=== PATIENT | male | born 1965 | race Two or more races ===

== ENCOUNTER 2020-01-04 15:08 | Outpatient (REF) | payer OTHER, SELFPAY | END 2020-01-04 15:09 | disposition home or self-care (01) | LOC: HO.LAB 15:08 | PROVIDERS: Visit Provider Internal Medicine | DX: Z20.828 Contact with and (suspected) exposure to other viral communicable diseases (principal) | CPT/HCPCS: C9803; U0003 ==

== ENCOUNTER → 2020-10-22 09:17 | Outpatient (BNVA) | payer MEDICAID, SELFPAY | PROVIDERS: PCP Internal Medicine; Referring Provider Internal Medicine; Visit Provider Nurse Practitioner Family | DX: Z12.11 Encounter for screening for malignant neoplasm of colon (principal) | CPT/HCPCS: 99202 ==

== ENCOUNTER 2020-12-03 07:44 | Outpatient (REF) | payer OTHER, SELFPAY ==
[2020-12-03 08:10] LABS: MANUAL DIFF FLAG NO
[2020-12-03 08:55] LABS: Basophils Percent Auto 0.3 % (0-2); Eosinophils Absolute Auto 0.3 X10*3/uL (0.0-0.4); Eosinophils Percent Auto 3.7 % (0-4); Hemoglobin 14.8 g/dl (14.0-18.0); Imm Gran Abs Auto 0.02 X10*3/uL (0.00-0.03); Imm Gran Pct Auto 0.3 % (0.0-0.4); Lymphocytes Absolute Auto 1.9 X10*3/uL (1.2-4.9); Lymphocytes Percent Auto 27.2 % (20-40); Mean Corpuscular HGB Conc 33.6 g/dl (31.0-36.0); Mean Corpuscular Hemoglobin 29.2 pg (27.0-33.0); Mean Platelet Volume 10.6 fL (9.4-12.4); Monocytes Absolute Auto 0.6 X10*3/uL (0.1-1.2); Monocytes Percent Auto 8.6 % (2-11); Neutrophils Absolute Auto 4.3 X10*3/uL (2.0-8.3); Neutrophils Percent Auto 59.9 % (45-73); Platelet Count 186 X10*3/uL (160-400); Red Blood Count 5.06 X10*6/uL (4.60-5.80); Red Cell Distribution Width 12.5 % (11.0-16.0); White Blood Count 7.1 X10*3/uL (4.8-10.8)
[2020-12-03 09:11] LABS: Alanine Aminotransferase 19 U/L (0-40); Albumin Level 4.3 g/dL (3.5-5.0); Alkaline Phosphatase 69 U/L (39-117); Anion Gap 12 (12-20); Aspartate Amino Transferase 23 U/L (5-37); Bilirubin Total 0.4 mg/dL (0.0-1.0); Blood Urea Nitrogen 12 mg/dL (9-16); Calcium 9.5 mg/dL (8.4-10.2); Carbon Dioxide 26 mmol/L (22-29); Chloride 103 mmol/L (96-108); Cholesterol 242 mg/dL; Estimated Glomerular Filt Rate > 60; Glucose Fasting 128 mg/dL (60-99); HDL Cholesterol 47 mg/dL; LDL Cholesterol Calculated 174 mg/dl; Potassium 4.5 mmol/L (3.3-5.1); Sodium 136 mmol/L (135-145); Total Protein 7.6 g/dL (6.5-8.0); Triglycerides 107 mg/dL
== END 2020-12-03 07:45 | disposition home or self-care (01) ==
LOC: HO.LAB 07:44
PROVIDERS: PCP Internal Medicine; Visit Provider Internal Medicine
DX: E66.3 Overweight (principal)
CPT/HCPCS: 36415; 80053; 80061; 85025

== ENCOUNTER 2020-12-05 06:25 | Day surgery (SDC) | payer OTHER, SELFPAY ==
[2020-11-28 13:18] VITALS: BMI 27.2
--- NOTE | 2020-12-04 09:05 | HO.ANESPROP2 ---
Documented by User: Marina Lucero NP 12/04/20 09:06 HPI - Anesthesia Eval Consult details Narrative: 55yo M for Colonoscopy PMFSH Active Problems Active Problems: All Active Problems (Updated 12/04/20 @ 08:24 by Diana Macias) Headache (Acute) Overweight (Acute) Past Medical History Medical History Headache Overweight Family History Family History Father Diabetes Hypertension Surgical History Surgical History History of hernia surgery Social History Social History Housing: Apartment Alcohol intake: current Alcohol intake frequency: 0-2 drinks per day Alcohol type: beer Patient Tobacco Use Status: Never used Tobacco e-Cigarette/Vaping Use: Never Used Second Hand Smoke Exposure: No Use of substances other than those prescribed or required for medical reasons: No Are you DNR?: No Advance Directives: No Advance Directives Information Provided: Yes service: No Current occupational status: employed Current occupational exposures/hazards: No Meds Allergies Allergy/AdvReac Type Severity Reaction Status Date / Time No Known Allergies Allergy Verified 12/05/20 06:34 Home Medications Medication Instructions Recorded Confirmed Last Taken Type xsdfioi-epmsmfuoqeptl-vhdqervv 250 2 tab PO Q6H PRN 08/27/20 08/27/20 Unknown History mg-250 mg-65 mg tablet (Excedrin Extra Strength) Exam Exam Date and Time: December 04, 2020 0905 Height,Weight and Vital Signs: Height 5 ft 10 in Weight 86.183 kg Assessment and Plan Assessment Anesthesia Assessment: Chart Reviewed Documented by User: Rima Davison MD 12/05/20 07:37 PMFSH Past Medical History Medical History Headache Overweight Family History Family History Father Diabetes Hypertension Surgical History Surgical History History of hernia surgery History of Problems with Anesthesia: No Social History Social History Housing: Apartment Alcohol intake: current Alcohol intake frequency: 0-2 drinks per day Alcohol type: beer Patient Tobacco Use Status: Never used Tobacco e-Cigarette/Vaping Use: Never Used Second Hand Smoke Exposure: No Use of substances other than those prescribed or required for medical reasons: No Are you DNR?: No Advance Directives: No Advance Directives Information Provided: Yes service: No Current occupational status: employed Current occupational exposures/hazards: No Meds Allergies Allergy/AdvReac Type Severity Reaction Status Date / Time No Known Allergies Allergy Verified 12/05/20 06:34 Home Medications Medication Instructions Recorded Confirmed Last Taken Type abpylwf-nsrbommaqhzur-kvrxqrcw 250 2 tab PO Q6H PRN 08/27/20 08/27/20 Unknown History mg-250 mg-65 mg tablet (Excedrin Extra Strength) Exam Airway Mallampati Class: II TM Dist: >3cm Neck ROM: Full Loose/Missing/Broken Teeth: No Heart: RRR Lungs: CTA Assessment and Plan Assessment Anesthesia Assessment: Anesthesia Plan Discussed Final Anesthetic Review History of Problems with Anesthesia: No NPO: Yes ASA Class: II Final Preanesthetic Review: Meds/Allgs Chart Reviewed, Consent Obtained/Reviewed and Anes Risks/Benef Reviewed Patient Risk: Low Procedure Risk: Low Anesthetic Plan Anesthetic Plan: MAC: Disposition: Standard PACU
[2020-12-05 06:35] VITALS: BMI 25.8
[2020-12-05 06:42] VITALS: BP 169/94; PULSE 79; RESP 16; TEMP 36.2; O2SAT 99
[2020-12-05] MEDS: Lactated Ringers 1,000 ML 100 ML IVCONT (06:52)
--- NOTE | 2020-12-05 07:24 | P.HPSUR_ITS ---
Pre-Procedural Eval Section A Date of Service: 12/05/20 The patient is an INPATIENT: No The History & Physical has been completed within 30 days and I have reviewed it.: No Section B Chief Complaint: screening Details of Present Illness: Colon cancer Screening Relevant Family History (Specify if Yes): No Relevant Social History: None Present Medications: see Short Stay Collaborative assessment Medical History: Significant History (Headache Overweight) History of Previous Operations: Relevant previous surgery/procedure and date(s) (Status post hernia surgery) Allergies: Allergies Allergy/AdvReac Type Severity Reaction Status Date / Time No Known Allergies Allergy Verified 12/05/20 06:34 Review of Systems Sugical H&P ROS: Negative: Constitution, Cardiovascular, Respiratory and Ga strointestinal Exam Surgical H&P Exam: Normal: Heart, Normal: Lungs, Normal: Extremities and Normal: Abdomen Plan Diagnosis/Plan: Unchanged I have reviewed the history and physical and performed a pertinent physical examination on my patient. No changes have occurred unless specified.
--- NOTE | 2020-12-05 07:25 | P.OP_ITS ---
Operative Note Operative Note Date of Service: 12/05/20 Narrative: Pre-op diagnosis:?Colon cancer screening Post-op diagnosis:?other (Diverticulosis) Procedure:? COLONOSCOPY TILL CECUM Consent: Indications for the procedure and potential complications of bleeding, perforation, reaction to medications and missed diagnosis were discussed with the patient and informed consent was obtained. Instrument: Olympus PCF H 190 L variable stiffness pediatric colonoscope Monitoring: Vital signs and clinical assessment, intermittent blood pressure monitoring, continuous EKG monitoring, Pulse oximetry and Carbon Dioxide monitoring were done throughout the procedure. Colon withdrawl time was 14 minutes. Procedure: The patient was placed in the left lateral decubitis position and pre-procedure medications were administered. After a digital rectal examination of the ano-rectum, the video colonoscope was inserted into the rectum and advanced through the colon to the cecum. The colonoscope was slowly withdrawn in a retrograde panoramic fashion and the colon mucosa was carefully examined including a retroflexed view of the rectum. Findings and interventions are described below. Procedure Difficulty: [Without difficulty] [LLQ pressure applied to intubate the transverse colon/cecum] Findings: Terminal Ileum: Not evaluated Cecum:? Normal Ascending Colon:? Normal Transverse Colon:? Normal Descending Colon:? Normal Sigmoid Colon:? Moderate diverticulosis Rectum:? Normal Ano-rectum:? Normal Colon preparation:? Good after some irrigation Impression and Post Procedure Diagnosis: Colonoscopy Findings: No polyps were detected Moderate diverticulosis seen in the sigmoid colon Plan: Repeat Colonoscopy in 10 years. Above findings were reviewed with the patient and diverticulosis handout was given in the discharge area Surgeon:?Niki Adam MD Anesthesia:?MAC (Lurdes Ram CRNA) Was an Blending Machine Operator used for this Procedure?:?Yes Blending Machine Operator:?Fe Huddleston Estimated blood loss (mL):?0 Pathology:?none sent Condition:?stable Disposition:?PACU
[2020-12-05] MEDS: Sodium Phosphate,Mono-Dibasic 133 ML ENEMA PR (07:50)
--- NOTE | 2020-12-05 08:30 | PC.NURSE ---
Patient being prepped in [facility] for Colonoscopy with Dr. Adam. Guest Service Agent offered, however patient declined. During intake, patient stated that he drank clear liquids only yesterday, finished his bowel prep completely, and that his output was clear. Later when Dr. Davison from anesthesia at bedside, patient again repeated all of this. Later when Dr. Adam at bedside, patient stated that he drank 8 cups of prep and ate a sandwich yesterday at 11am. Unclear as to what exact prep patient received from office. Patient states he is pretty sure he followed the instructions . Dr. Adam ordered one Enema. Enema administered, tolerated well. Output visualized by this RN, Clear output. Dr. Adam aware. Okay to proceed with procedure.
[2020-12-05 09:13] VITALS: BP 120/79; PULSE 92; RESP 18; TEMP 36.7; O2SAT 99
[2020-12-05 09:28] VITALS: BP 121/76; PULSE 75; RESP 18; TEMP 36.7; O2SAT 99
== END 2020-12-05 09:59 | disposition home or self-care (01) ==
PROVIDERS: PCP Internal Medicine; Visit Provider Internal Medicine Gastroenterology
PROC: 0DJD8ZZ Inspection of Lower Intestinal Tract, Via Natural or Artificial Opening Endoscopic (ICD-10-PCS; CPT 45378; principal; 2020-12-05 07:30)
DX: Z12.11 Encounter for screening for malignant neoplasm of colon (principal); K57.30 Diverticulosis of large intestine without perforation or abscess without bleeding; R51.9 Headache, unspecified; E66.3 Overweight; Z68.27 Body mass index [BMI] 27.0-27.9, adult
CPT/HCPCS: 45378

== ENCOUNTER → 2020-12-17 08:49 | Outpatient (BNVA) | payer OTHER, SELFPAY | PROVIDERS: PCP Internal Medicine; Visit Provider Nurse Practitioner Family | DX: K57.90 Diverticulosis of intestine, part unspecified, without perforation or abscess without bleeding (principal); Z98.890 Other specified postprocedural states | CPT/HCPCS: 99212 ==

== ENCOUNTER 2021-03-27 08:12 | Outpatient (REF) | payer OTHER, SELFPAY ==
[2021-03-27 08:32] LABS: MANUAL DIFF FLAG NO
[2021-03-27 09:31] LABS: Basophils Percent Auto 0.3 % (0-2); Eosinophils Absolute Auto 0.2 X10*3/uL (0.0-0.4); Eosinophils Percent Auto 2.4 % (0-4); Hemoglobin 14.1 g/dl (14.0-18.0); Imm Gran Abs Auto 0.01 X10*3/uL (0.00-0.03); Imm Gran Pct Auto 0.1 % (0.0-0.4); Lymphocytes Absolute Auto 1.9 X10*3/uL (1.2-4.9); Lymphocytes Percent Auto 27.8 % (20-40); Mean Corpuscular HGB Conc 32.8 g/dl (31.0-36.0); Mean Corpuscular Hemoglobin 28.5 pg (27.0-33.0); Mean Corpuscular Volume 86.9 fL (80.0-98.0); Mean Platelet Volume 10.6 fL (9.4-12.4); Monocytes Absolute Auto 0.6 X10*3/uL (0.1-1.2); Monocytes Percent Auto 8.7 % (2-11); Neutrophils Absolute Auto 4.2 x10*3/uL (2.0-8.3); Neutrophils Percent Auto 60.7 % (45-73); Platelet Count 189 X10*3/uL (160-400); Red Blood Count 4.95 X10*6/uL (4.60-5.80); Red Cell Distribution Width 12.5 % (11.0-16.0)
[2021-03-27 10:05] LABS: Alanine Aminotransferase 23 U/L (0-40); Albumin Level 4.2 g/dL (3.5-5.0); Alkaline Phosphatase 67 U/L (39-117); Anion Gap 11 (12-20); Aspartate Amino Transferase 24 U/L (5-37); Bilirubin Total 0.5 mg/dL (0.0-1.0); Blood Urea Nitrogen 16 mg/dL (9-16); Calcium 9.3 mg/dL (8.4-10.2); Carbon Dioxide 26 mmol/L (22-29); Chloride 105 mmol/L (96-108); Cholesterol 226 mg/dL; Estimated Glomerular Filt Rate > 60; Glucose Fasting 116 mg/dL (60-99); HDL Cholesterol 56 mg/dL; LDL Cholesterol Calculated 158 mg/dl; Potassium 4.5 mmol/L (3.3-5.1); Sodium 137 mmol/L (135-145); Total Protein 7.3 g/dL (6.5-8.0); Triglycerides 62 mg/dL
== END 2021-03-27 08:13 | disposition home or self-care (01) ==
LOC: HO.LAB 08:12
PROVIDERS: PCP Internal Medicine; Visit Provider Internal Medicine
DX: E66.3 Overweight (principal); E78.5 Hyperlipidemia, unspecified
CPT/HCPCS: 36415; 80053; 80061; 85025

== ENCOUNTER 2021-08-12 06:11 | Outpatient (REF) | payer OTHER, SELFPAY ==
[2021-08-12 07:54] LABS: Alanine Aminotransferase 21 U/L (0-40); Albumin Level 4.3 g/dL (3.5-5.0); Alkaline Phosphatase 66 U/L (39-117); Anion Gap 12 (12-20); Aspartate Amino Transferase 24 U/L (5-37); Bilirubin Total 0.3 mg/dL (0.0-1.0); Blood Urea Nitrogen 13 mg/dL (9-16); Calcium 9.1 mg/dL (8.4-10.2); Carbon Dioxide 25 mmol/L (22-29); Chloride 106 mmol/L (96-108); Cholesterol 215 mg/dL; Estimated Glomerular Filt Rate > 60; Glucose Fasting 107 mg/dL (60-99); HDL Cholesterol 52 mg/dL; LDL Cholesterol Calculated 129 mg/dl; Potassium 4.4 mmol/L (3.3-5.1); Sodium 139 mmol/L (135-145); Total Protein 7.4 g/dL (6.5-8.0); Triglycerides 173 mg/dL
== END 2021-08-12 06:12 | disposition home or self-care (01) ==
LOC: HO.LAB 06:11
PROVIDERS: PCP Internal Medicine; Visit Provider Internal Medicine
DX: R73.02 Impaired glucose tolerance (oral) (principal); E78.5 Hyperlipidemia, unspecified
CPT/HCPCS: 36415; 80053; 80061

== ENCOUNTER 2021-12-30 06:43 | Outpatient (REF) | payer OTHER, SELFPAY ==
[2021-12-30 07:50] LABS: Alanine Aminotransferase 25 U/L (0-40); Albumin Level 4.3 g/dL (3.5-5.0); Alkaline Phosphatase 69 U/L (39-117); Anion Gap 12 (12-20); Aspartate Amino Transferase 26 U/L (5-37); Bilirubin Total 0.5 mg/dL (0.0-1.0); Blood Urea Nitrogen 11 mg/dL (9-16); Calcium 9.4 mg/dL (8.4-10.2); Carbon Dioxide 29 mmol/L (22-29); Chloride 103 mmol/L (96-108); Cholesterol 207 mg/dL; Estimated Glomerular Filt Rate > 60; Glucose Fasting 134 mg/dL (60-99); HDL Cholesterol 60 mg/dL; LDL Cholesterol Calculated 133 mg/dl; Potassium 4.3 mmol/L (3.3-5.1); Sodium 140 mmol/L (135-145); Total Protein 7.3 g/dL (6.5-8.0); Triglycerides 71 mg/dL
== END 2021-12-30 06:44 | disposition home or self-care (01) ==
LOC: HO.LAB 06:43
PROVIDERS: PCP Internal Medicine; Visit Provider Internal Medicine
DX: Z13.89 Encounter for screening for other disorder (principal)
CPT/HCPCS: 36415; 80053; 80061

== ENCOUNTER 2022-06-30 05:59 | Outpatient (REF) | payer OTHER, SELFPAY ==
[2022-06-30 08:23] LABS: Alanine Aminotransferase 37 U/L (0-40); Albumin Level 4.1 g/dL (3.5-5.0); Alkaline Phosphatase 67 U/L (39-117); Anion Gap 13 (12-20); Aspartate Amino Transferase 34 U/L (5-37); Bilirubin Total 0.5 mg/dL (0.0-1.0); Blood Urea Nitrogen 19 mg/dL (9-16); Calcium 9.3 mg/dL (8.4-10.2); Carbon Dioxide 26 mmol/L (22-29); Chloride 106 mmol/L (96-108); Cholesterol 220 mg/dL; Estimated Glomerular Filt Rate > 60; Glucose Fasting 114 mg/dL (60-99); HDL Cholesterol 52 mg/dL; LDL Cholesterol Calculated 155 mg/dl; Potassium 4.3 mmol/L (3.3-5.1); Sodium 141 mmol/L (135-145); Total Protein 7.2 g/dL (6.5-8.0); Triglycerides 67 mg/dL
== END 2022-06-30 06:00 | disposition home or self-care (01) ==
LOC: HO.LAB 05:59
PROVIDERS: PCP Internal Medicine; Visit Provider Internal Medicine
DX: Z00.00 Encounter for general adult medical examination without abnormal findings (principal); E78.5 Hyperlipidemia, unspecified
CPT/HCPCS: 36415; 80053; 80061

== ENCOUNTER 2023-01-14 06:35 | Outpatient (REF) | payer OTHER, SELFPAY ==
[2023-01-14 08:32] LABS: Alanine Aminotransferase 26 U/L (0-40); Albumin Level 4.1 g/dL (3.5-5.0); Alkaline Phosphatase 68 U/L (39-117); Anion Gap 12 (12-20); Aspartate Amino Transferase 27 U/L (5-37); Bilirubin Total 0.5 mg/dL (0.0-1.0); Blood Urea Nitrogen 13 mg/dL (9-16); Calcium 9.4 mg/dL (8.4-10.2); Carbon Dioxide 26 mmol/L (22-29); Chloride 107 mmol/L (96-108); Cholesterol 175 mg/dL (<200); Estimated Glomerular Filt Rate > 60; Glucose Fasting 126 mg/dL (60-99); HDL Cholesterol 54 mg/dL (>40); LDL Cholesterol Calculated 109 mg/dL (<100); Sodium 141 mmol/L (135-145); Total Protein 7.4 g/dL (6.5-8.0); Triglycerides 61 mg/dL (<150)
== END 2023-01-14 06:36 | disposition home or self-care (01) ==
LOC: HO.LAB 06:35
PROVIDERS: PCP Internal Medicine; Visit Provider Internal Medicine
DX: E78.5 Hyperlipidemia, unspecified (principal)
CPT/HCPCS: 36415; 80053; 80061

== ENCOUNTER 2023-01-19 12:43 | Outpatient (AMB) | payer OTHER, SELFPAY ==
--- NOTE | 2023-01-19 12:50 | MHC.PC.OV ---
Vital Signs 01/19/23 12:51 01/19/23 13:10 Height 5 ft 10 in Weight 185 lb BMI 26.5 BP 150/80 H 150/80 H Blood Pressure Location Lt brachial Lt brachial Position Sitting Sitting Intake Visit Reasons: Annual Exam Intake Note: Patient here for a physical exam Meat Wrapper Required: No Accompanied by: Self / Same As Patient Allergies No Known Allergies Allergy (Verified 01/19/23 13:11) Medication List - Last Reconciled 01/19/23 by Yvonne Moe MD atorvastatin 40 mg PO BEDTIME 90 days Tobacco use date assessed: 07/07/22 Dental Screening Dental Screen Date: 01/19/23 Did you have a dental visit in the last 12 months?: No Did you have a dental problem in the last 6 months where you did not have access to dental care?: No Was dental information given to patient?: Yes HPI HPI Comments History of Present Illness Details This is a 58-year-old male with alcoholism that comes for his physical exam. Last colonoscopy was 2020 was normal. Blood glucose is elevated but he denies any polyuria, polydipsia or unintentional weight loss. Cholesterol has markedly improved with statins. Blood pressure elevated and will be recheck in 3 weeks by nurse navigator. He was advised to cut down on drinking alcohol daily. He laughed at me when I did that recommendation. No chest pain or shortness of breath. [facility] Medical History Alcohol abuse Glucose intolerance (impaired glucose tolerance) Dyslipidemia Overweight Headache Surgical History Hx of colonoscopy History of hernia surgery Family History Father Diabetes Hypertension Social History Housing: Apartment Alcohol intake: current Alcohol intake frequency: 0-2 drinks per day Alcohol type: beer, wine and hard liquor Patient Tobacco Use Status: Never used Tobacco e-Cigarette/Vaping Use: Never Used Second Hand Smoke Exposure: No service: No Current occupational status: employed Current occupational exposures/hazards: No Cognitive needs: No Hearing needs: No Vision needs: No Questionnaire Thrive Questionnaire Date Thrive assessed: 07/07/22 ADRYAN-7 AMB Questionnaire ADRYAN-7 Date ADRYAN - 7 assessed: 07/07/22 Source: Developed by Drs. Daniel Steiner, Cora Metcalf, Yuniel Darby and colleagues, with an educational aleks from [employer]. Review of Systems Const All systems reviewed & are unremarkable except as noted in HPI and below Eyes Reports no additional complaints, Denies change in vision and Denies other visual disturbances Card Denies chest pain at rest, Denies chest pain with activity, Denies edema, Denies irregular heart rhythm, Denies claudication, Denies dyspnea, Denies dyspnea on exertion, Denies orthopnea, Denies paroxysmal nocturnal dyspnea and Denies slow heart rate Resp Denies cough, Denies dyspnea and Denies dyspnea on exertion GI Denies abdominal pain, Denies change in bowel habits, Denies excessive flatus, Denies nausea and Denies vomiting Denies urinary hesitancy, Denies urinary incontinence and Denies urinary urgency Musc Denies abnormal gait, Denies atrophy, Denies deformity and Denies limited range of motion Skin/Breast Denies bleeding lesions, Denies changing lesions and Denies rash Neuro Denies abnormal gait, Denies behavioral changes, Denies confusion and Denies lack of coordination Psych Denies behavioral changes and Denies confusion Physical exam (Primary Care) Vital Signs: Last Vital Signs BP 150/80 H 01/19/23 12:51 BMI result Body Mass Index 26.5 Tobacco/Smoking Status: Tobacco use Status Tobacco use date assessed 07/07/22 01/19/23 12:56 Patient Tobacco Use Status Never used Tobacco 01/19/23 12:56 e-Cigarette/Vaping Use Never Used 01/19/23 12:56 Thrive Assessment: Date of Thrive Assessment Date Thrive assessed 07/07/22 01/19/23 12:56 Const General: No confusion Orientation/consciousness: patient oriented x3 and No confusion HENMT Head: Yes normal to inspection, Yes normocephalic and Yes atraumatic Ears: external ears normal Eyes General: appearance normal, both eyes and all related structures Eyelids: Yes eyelids normal Conjunctivae: conjunctivae normal Neck Neck: Yes normal visual inspection and Yes supple Resp Effort & Inspection: normal respiratory effort Auscultation: clear to auscultation bilaterally Cardio Jugular venous distension: no JVD Rate: regular rate Rhythm: regular rhythm Heart sounds: S1 normal heart sound present and S2 normal heart sound present GI Inspection: Yes normal to inspection Palpation (GI): Soft to palpation and nontender Auscultation: normal bowel sounds Skin General skin exam: no rashes or lesions noted Neuro General: patient oriented x3, no focal motor deficits and No confusion Extrem General: Yes full ROM Psych Appearance: grossly normal Assessment and Plan Assessment & Plan (1) Physical exam: Code(s): Z00.00 - Encounter for general adult medical examination without abnormal findings Plan: Repeat in a year. (2) Alcoholism: Code(s): F10.20 - Alcohol dependence, uncomplicated Plan: Advised to cut down on drinking alcohol. Coding Level of Care Code Est Pt Prev Care 40-64y(91005) Diagnoses Physical exam Z00.00 Alcoholism F10.20 Time Spent (min) 31
[2023-01-19 12:51] VITALS: BP 150/80; BMI 26.5
[2023-01-19 13:10] VITALS: BP 150/80
== END 2023-01-19 13:11 | disposition home or self-care (01) ==
PROVIDERS: Visit Provider Internal Medicine
DX: Z00.00 Encounter for general adult medical examination without abnormal findings (principal); F10.20 Alcohol dependence, uncomplicated
CPT/HCPCS: 99396

== ENCOUNTER 2023-05-25 06:00 | Outpatient (REF) | payer OTHER, SELFPAY ==
[2023-05-25 08:14] LABS: Alanine Aminotransferase 23 U/L (0-40); Albumin Level 4.1 g/dL (3.5-5.0); Alkaline Phosphatase 78 U/L (39-117); Anion Gap 9 (12-20); Aspartate Amino Transferase 22 U/L (5-37); Bilirubin Total 0.5 mg/dL (0.0-1.0); Blood Urea Nitrogen 14 mg/dL (9-16); Calcium 9.5 mg/dL (8.4-10.2); Carbon Dioxide 30 mmol/L (22-29); Chloride 104 mmol/L (96-108); Cholesterol 186 mg/dL (<200); Estimated Glomerular Filt Rate > 60; Glucose Fasting 121 mg/dL (60-99); HDL Cholesterol 49 mg/dL (>40); LDL Cholesterol Calculated 121 mg/dL (<100); Potassium 4.1 mmol/L (3.3-5.1); Sodium 139 mmol/L (135-145); Total Protein 7.4 g/dL (6.5-8.0); Triglycerides 80 mg/dL (<150)
== END 2023-05-25 06:01 | disposition home or self-care (01) ==
LOC: HO.LAB 06:00
PROVIDERS: PCP Internal Medicine; Visit Provider Internal Medicine
DX: E78.5 Hyperlipidemia, unspecified (principal)
CPT/HCPCS: 36415; 80053; 80061

== ENCOUNTER 2023-05-26 14:52 | Outpatient (AMB) | payer OTHER, SELFPAY ==
[2023-05-26 14:56] VITALS: BP 140/80; BMI 27.1
--- NOTE | 2023-05-26 14:56 | A.OFFPC_ITS ---
Vital Signs 05/26/23 14:56 Height 5 ft 10 in Weight 189 lb BMI 27.1 BP 140/80 H Blood Pressure Location Lt brachial Position Sitting Intake Visit Reasons: glucose,lipids,bp Intake Note: Patient here for a follow up glucose, lipids, bp Environmental Engineer Required: No Accompanied by: Self / Same As Patient Allergies No Known Allergies Allergy (Verified 05/26/23 15:11) Medication List - Last Reconciled 05/26/23 by Yvonne Moe MD atorvastatin 40 mg PO BEDTIME 90 days Tobacco use date assessed: 05/26/23 Dental Screening Dental Screen Date: 05/26/23 Did you have a dental visit in the last 12 months?: No Did you have a dental problem in the last 6 months where you did not have access to dental care?: No Was dental information given to patient?: Yes HPI HPI Comments History of Present Illness Details This is a 58-year-old male with alcoholism, impaired glucose tolerance and dyslipidemia that complains of nasal congestion with clear nasal discharge that has been present for over 2 weeks most likely due to allergic rhinitis. Cholesterol has been stable. Fasting blood glucose has improved. Denies any polyuria or polydipsia or unintentional weight loss. Drinks 1-2 beers every day and was advised to cut down on drinking. Patient was advised that there is outpatient rehab for alcoholism. No chest pain or shortness of breath. [facility] Medical History (Updated 05/26/23 @ 15:25 by Yvonne Moe MD) Essential hypertension Alcohol abuse Glucose intolerance (impaired glucose tolerance) Dyslipidemia Overweight Headache Surgical History Hx of colonoscopy History of hernia surgery Family History Father Diabetes Hypertension Social History Housing: Apartment Alcohol intake: current Alcohol intake frequency: 0-2 drinks per day Alcohol type: beer, wine and hard liquor Patient Tobacco Use Status: Never used Tobacco e-Cigarette/Vaping Use: Never Used Second Hand Smoke Exposure: No service: No Current occupational status: employed Current occupational exposures/hazards: No Cognitive needs: No Hearing needs: No Vision needs: No Questionnaire PHQ-9 Over the last 2 weeks, how often have you been bothered by any of the following problems? 1. Little interest or pleasure in doing things: not at all 2. Feeling down, depressed, or hopeless: not at all 3. Trouble falling or staying asleep, or sleeping too much: not at all 4. Feeling tired or having little energy: not at all 5. Poor appetite or overeating: not at all 6. Feeling bad about yourself - or that you are a failure or have let yourself or your family down: not at all 7. Trouble concentrating on things, such as reading the newspaper or watching television: not at all 8. Moving or speaking so slowly that other people could have noticed. Or the opposite - being so fidgety or restless that you have been moving around a lot more than usual: not at all 9. Thoughts that you would be better off or of hurting yourself in some way: not at all Total score: 0 Depression Screening Interpretation: Negative Depression Screening Done: Yes 62253 - PHQ-9 Billing: Yes Source: Developed by Drs. Daniel Steiner, Cora Metcalf, Yuniel Darby and colleagues, with an educational aleks from [employer]. Thrive Questionnaire Date Thrive assessed: 05/26/23 I am a: Patient What is your living situation today?: I have a steady place to live Within the past 12 months, did the food you bought not last and you didn't have the money to get more?: Never true Within the past 12 months, did you worry whether your food would run out before you got money to buy more?: Never true Do you have trouble paying for medicines?: No Do you have trouble getting transportation to medical appointments?: No Do you have trouble paying your heating and electricity bill?: No Do you have trouble taking care of your child, family member or friend?: No Do you have trouble with day-to-day activities such as bathing, preparing meals, shopping, managing finances, etc.?: No Are you currently unemployed and looking for a job?: No Are you interested in more education?: No Please select the resources that you would like help with: None Currently or been in a relationship where the following occur: no concerns reported THRIVE Score: 0 AUDIT C Alcohol Use Questionnaire (AUDIT-C) 1. How often do you have a drink containing alcohol?: 4 or more times a week 2. How many drinks containing alcohol do you have on a typical day when you are drinking?: 1 or 2 3. How often do you have six or more drinks on one occasion?: Never Total Score: 4 Score Reviewed/Action Taken: Yes ADRYAN-7 AMB Questionnaire ADRYAN-7 Date ADRYAN - 7 assessed: 05/26/23 Feeling nervous, anxious, or on edge: 0 = Not at all Not being able to stop or control worryin = Not at all Worrying too much about different things: 0 = Not at all Trouble relaxin = Not at all Being so restless that it is hard to sit still: 0 = Not at all Becoming easily annoyed or irritable: 0 = Not at all Feeling afraid as if something awful might happen: 0 = Not at all Total ADRYAN-7 score (0-4 normal; 5-9 mild; 10-14 moderate; 15-21 severe): 0 Source: Developed by Drs. Daniel Steiner, Cora Metcalf, Yuniel Darby and colleagues, with an educational aleks from [employer]. ADRYAN-7 Assessment Billing ADRYAN-7 Assessment Tool: ADRYAN-7 Assessment 22816 Review of Systems Const All systems reviewed & are unremarkable except as noted in HPI and below Eyes Reports no additional complaints, Denies change in vision and Denies other visual disturbances Card Denies chest pain at rest, Denies chest pain with activity, Denies edema, Denies irregular heart rhythm, Denies claudication, Denies dyspnea, Denies dyspnea on exertion, Denies orthopnea, Denies paroxysmal nocturnal dyspnea and Denies slow heart rate Resp Denies cough, Denies dyspnea and Denies dyspnea on exertion Musc Denies atrophy, Denies deformity and Denies limited range of motion Physical exam (Primary Care) Vital Signs: Last Vital Signs BP 140/80 H 05/26/23 14:56 BMI result Body Mass Index 27.1 Tobacco/Smoking Status: Tobacco use Status Tobacco use date assessed 05/26/23 05/26/23 15:04 Patient Tobacco Use Status Never used Tobacco 05/26/23 15:04 e-Cigarette/Vaping Use Never Used 05/26/23 15:04 PHQ-9: PHQ-9 Score PHQ-9: Total score 0 05/26/23 15:04 Depression Screening Interpretation: Negative Thrive Assessment: Date of Thrive Assessment Date Thrive assessed 05/26/23 05/26/23 15:04 Currently or been in a relationship where the following occur: no concerns reported Resp Effort & Inspection: normal respiratory effort Auscultation: clear to auscultation bilaterally Cardio Jugular venous distension: no JVD Rate: regular rate Rhythm: regular rhythm Heart sounds: S1 normal heart sound present and S2 normal heart sound present Extrem General: Yes full ROM Assessment and Plan Assessment & Plan (1) Allergic rhinitis: Code(s): J30.9 - Allergic rhinitis, unspecified Plan: Start Flonase as needed (2) Alcoholism: Code(s): F10.20 - Alcohol dependence, uncomplicated Plan: Cut down on drinking alcohol. (3) Glucose intolerance (impaired glucose tolerance): Code(s): R73.02 - Impaired glucose tolerance (oral) Plan: Repeat fasting blood glucose. (4) Dyslipidemia: Code(s): E78.5 - Hyperlipidemia, unspecified Plan: Continue statins. Medications: New fluticasone propionate 50 mcg/actuation (Flonase Allergy Relief) administer into each nostril 1 spray intranasal DAILY 30 days 16 grams 2RF J30.9 - Allergic rhinitis, unspecified citalopram 10 mg PO DAILY 90 days 90 tabs 1RF Coding Level of Care Code Est Pt Level 4 (96346) Diagnoses Allergic rhinitis J30.9 Alcoholism F10.20 Glucose intolerance (impaired glucose tolerance) R73.02 Dyslipidemia E78.5 Additional Codes ARDYAN-7 Assessment Billing - ADRYAN-7 Assessment Tool: ADRYAN-7 Assessment 14373 ([id number]) Time Spent (min) 20
== END 2023-05-26 15:20 | disposition home or self-care (01) ==
PROVIDERS: PCP Internal Medicine; Visit Provider Internal Medicine
DX: J30.9 Allergic rhinitis, unspecified (principal); F10.20 Alcohol dependence, uncomplicated; R73.02 Impaired glucose tolerance (oral); E78.5 Hyperlipidemia, unspecified
CPT/HCPCS: 99214

== ENCOUNTER 2024-01-25 06:22 | Outpatient (REF) | payer OTHER, SELFPAY ==
[2024-01-25 07:38] LABS: Alanine Aminotransferase 27 U/L (0-40); Albumin Level 4.1 g/dL (3.5-5.0); Alkaline Phosphatase 67 U/L (39-117); Anion Gap 11 (12-20); Aspartate Amino Transferase 30 U/L (5-37); Bilirubin Total 0.5 mg/dL (0.0-1.0); Blood Urea Nitrogen 18 mg/dL (9-16); Calcium 8.9 mg/dL (8.4-10.2); Carbon Dioxide 25 mmol/L (22-29); Chloride 105 mmol/L (96-108); Cholesterol 186 mg/dL (<200); Estimated Glomerular Filt Rate > 60; Glucose Fasting 120 mg/dL (60-99); HDL Cholesterol 55 mg/dL (>40); LDL Cholesterol Calculated 118 mg/dL (<100); Potassium 4.1 mmol/L (3.3-5.1); Sodium 137 mmol/L (135-145); Total Protein 7.4 g/dL (6.5-8.0); Triglycerides 67 mg/dL (<150)
== END 2024-01-25 06:23 | disposition home or self-care (01) ==
LOC: HO.LAB 06:22
PROVIDERS: PCP Internal Medicine; Visit Provider Internal Medicine
DX: E78.5 Hyperlipidemia, unspecified (principal); F10.20 Alcohol dependence, uncomplicated
CPT/HCPCS: 36415; 80053; 80061

== ENCOUNTER 2024-01-26 14:25 | Outpatient (AMB) | payer OTHER, SELFPAY ==
[2024-01-26 14:28] VITALS: BP 136/80; BMI 26.5
--- NOTE | 2024-01-26 14:28 | A.OFFPC_ITS ---
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 Accompanied by: Self / Same As Patient Allergies No Known Allergies Allergy (Verified 01/26/24 14:40) Medication List - Last Reconciled 01/26/24 by Yvonne Moe MD atorvastatin 40 mg PO BEDTIME 90 days citalopram 10 mg PO DAILY 90 days fluticasone propionate 50 mcg/actuation (Flonase Allergy Relief) 1 spray intranasal DAILY 30 days Tobacco use date assessed: 05/26/23 Dental Screening Dental Screen Date: 01/26/24 Did you have a dental visit in the last 12 months?: No Did you have a dental problem in the last 6 months where you did not have access to dental care?: No Was dental information given to patient?: Patient has dentist HPI HPI Comments History of Present Illness Details The patient is a 59-year-old male presenting today for his physical exam. The patient has a past surgical history of hernia repair. He reports a history of depression and anxiety, for which he is currently taking citalopram 10 mg. The patient indicates improvement in his mood symptoms with medication, although occasional depressive episodes are influenced by financial stressors. Previously, he was a heavy alcohol consumer, but he now reports significant reduction in alcohol intake, consuming primarily two beers daily. He acknowledges the need to further reduce alcohol consumption due to health risks. The patient has a diagnosis of prediabetes, marked by a fasting blood glucose of 120 mg/dL, attributed partly to frequent nocturnal cravings for sweets. Additionally, he manages hypercholesterolemia with atorvastatin 40 mg, which remains well-controlled with recent lab results indicating stable cholesterol levels at 186 mg/dL. The patient denies any chest pain or dyspnea and notes intentional weight loss, citing regular physical activity for reducing weight from 189 to 185 lbs. Family history is notable for father's diabetes and hypertension. There is an absence of allergies and no smoking history. - Recent blood glucose showed prediabeti c level of 120 mg/dL, currently managed by lifestyle adjustments. - Cholesterol level stable at 186 mg/dL, managed with atorvastatin. - Discussed the need for tetanus vaccina tion update due to the last recorded immunization being in 1970s. - Advised to reduce alcohol consumption to decrease health risks. - Noted the suggestion for ear cleaning with hydrogen peroxide. [facility] Medical History Essential hypertension Alcohol abuse Glucose intolerance (impaired glucose tolerance) Dyslipidemia Overweight Headache Surgical History Hx of colonoscopy History of hernia surgery Family History Father Diabetes Hypertension Social History (Updated 01/26/24 @ 14:44 by Yvonne Moe MD) Housing: Apartment Alcohol intake: current Alcohol intake frequency: 0-2 drinks per day Alcohol type: beer, wine and hard liquor Patient Tobacco Use Status: Never used Tobacco e-Cigarette/Vaping Use: Never Used Second Hand Smoke Exposure: No service: No Current occupational status: employed Current occupational exposures/hazards: No Cognitive needs: No Hearing needs: No Vision needs: No Questionnaire PHQ-9 Over the last 2 weeks, how often have you been bothered by any of the following problems? 1. Little interest or pleasure in doing things: not at all 2. Feeling down, depressed, or hopeless: not at all 3. Trouble falling or staying asleep, or sleeping too much: not at all 4. Feeling tired or having little energy: not at all 5. Poor appetite or overeating: not at all 6. Feeling bad about yourself - or that you are a failure or have let yourself or your family down: not at all 7. Trouble concentrating on things, such as reading the newspaper or watching television: not at all 8. Moving or speaking so slowly that other people could have noticed. Or the opposite - being so fidgety or restless that you have been moving around a lot more than usual: not at all 9. Thoughts that you would be better off or of hurting yourself in some way: not at all Total score: 0 Depression Screening Interpretation: Negative Depression Screening Done: Yes 56894 - PHQ-9 Billing: Yes Source: Developed by Drs. Daniel Steiner, Cora Metcalf, Yuniel Darby and colleagues, with an educational aleks from [employer]. Thrive Questionnaire Date Thrive assessed: 05/26/23 I am a: Patient What is your living situation today?: I have a steady place to live Within the past 12 months, did the food you bought not last and you didn't have the money to get more?: Never true Within the past 12 months, did you worry whether your food would run out before you got money to buy more?: Never true Do you have trouble paying for medicines?: I choose not to answer this question Do you have trouble getting transportation to medical appointments?: I choose not to answer this question Do you have trouble paying your heating and electricity bill?: I choose not to answer this question Do you have trouble taking care of your child, family member or friend?: I choose not to answer this question Do you have trouble with day-to-day activities such as bathing, preparing meals, shopping, managing finances, etc.?: I choose not to answer this question Are you currently unemployed and looking for a job?: I choose not to answer this question Are you interested in more education?: I choose not to answer this question Please select the resources that you would like help with: None Currently or been in a relationship where the following occur: I choose not to answer THRIVE Score: 0 AUDIT C Alcohol Use Questionnaire (AUDIT-C) 1. How often do you have a drink containing alcohol?: 4 or more times a week 2. How many drinks containing alcohol do you have on a typical day when you are drinking?: 1 or 2 3. How often do you have six or more drinks on one occasion?: Never Total Score: 4 Score Reviewed/Action Taken: No ADRYAN-7 AMB Questionnaire ADRYAN-7 Date ADRYAN - 7 assessed: 05/26/23 Feeling nervous, anxious, or on edge: 0 = Not at all Not being able to stop or control worryin = Not at all Worrying too much about different things: 0 = Not at all Trouble relaxin = Not at all Being so restless that it is hard to sit still: 0 = Not at all Becoming easily annoyed or irritable: 0 = Not at all Feeling afraid as if something awful might happen: 0 = Not at all Total ADRYAN-7 score (0-4 normal; 5-9 mild; 10-14 moderate; 15-21 severe): 0 Source: Developed by Drs. Daniel Steiner, Cora Metcalf, Yuniel Darby and colleagues, with an educational aleks from [employer]. ADRYAN-7 Assessment Billing ADRYAN-7 Assessment Tool: ADRYAN-7 Assessment 64661 Review of Systems Const All systems reviewed & are unremarkable except as noted in HPI and below Card Denies chest pain at rest, Denies chest pain with activity, Denies edema, Denies irregular heart rhythm, Denies claudication, Denies dyspnea, Denies dyspnea on exertion, Denies orthopnea, Denies paroxysmal nocturnal dyspnea and Denies slow heart rate Resp Denies cough, Denies dyspnea and Denies dyspnea on exertion GI Denies abdominal pain, Denies change in bowel habits, Denies excessive flatus, Denies nausea and Denies vomiting Denies urinary hesitancy, Denies urinary incontinence and Denies urinary urgency Physical exam (Primary Care) Vital Signs: Last Vital Signs BP 136/80 01/26/24 14:28 BMI result Body Mass Index 26.5 Tobacco/Smoking Status: Tobacco use Status Tobacco use date assessed 05/26/23 01/26/24 14:34 Patient Tobacco Use Status Never used Tobacco 01/26/24 14:34 e-Cigarette/Vaping Use Never Used 01/26/24 14:34 PHQ-9: PHQ-9 Score PHQ-9: Total score 0 01/26/24 14:34 Depression Screening Interpretation: Negative Thrive Assessment: Date of Thrive Assessment Date Thrive assessed 05/26/23 01/26/24 14:34 Currently or been in a relationship where the following occur: I choose not to answer [facility] Head: Yes normal to inspection, Yes normocephalic and Yes atraumatic Ears: external ears normal Eyes General: appearance normal, both eyes and all related structures Eyelids: Yes eyelids normal Conjunctivae: conjunctivae normal Neck Neck: Yes normal visual inspection and Yes supple Resp Effort & Inspection: normal respiratory effort Auscultation: clear to auscultation bilaterally Cardio Jugular venous distension: no JVD Rate: regular rate Rhythm: regular rhythm Heart sounds: S1 normal heart sound present and S2 normal heart sound present GI Inspection: Yes normal to inspection Palpation (GI): Soft to palpation and nontender Auscultation: normal bowel sounds Skin General skin exam: no rashes or lesions noted Neuro General: no focal motor deficits Extrem General: Yes full ROM Psych Appearance: grossly normal Office Procedures Flu Questionnaire Does the patient have a severe egg allergy?: No Does the patient have severe life threatening allergies?: No Does the patient have a fever or illness today?: No Has the patient ever had Guillain-[place] Syndrome?: No Has the patient ever had any past reaction to a flu shot?: No Immunizations Fluarix Triv [id number] (PF) 45 mcg (15 mcg x 3)/0.5 mL IM syringe Performing Provider: Yvonne Moe MD [facility] [place] Administered by: MK Chery on 01/26/24 14:36 Dose Route Admin Location Dispensed Lot Number Expiration Date [facility] [employer] 0.5 mL IM Right Deltoid 0.5 mL [id number] 08/06/24 [id number] [employer] VIS Given Date VIS Provided VIS Publication Date 01/26/24 Single Vaccine 20 Eligibility Eligibility Date Funding Source Not [facility] Eligible 01/26/24 Private Coding Level of Care Code Est Pt Prev Care 40-64y(07342) Diagnoses Physical exam Z00.00 Alcoholism F10.20 Additional Codes PHQ-9 - 95819 - PHQ-9 Billing: Yes ([id number]) ADRYAN-7 Assessment Billing - ADRYAN-7 Assessment Tool: ADRYAN-7 Assessment 43615 ([id number]) Time Spent (min) 31 Assessment & Plan Assessment & Plan (1) Physical exam: Code(s): Z00.00 - Encounter for general adult medical examination without abnormal findings Category: Medical (2) Alcoholism: Code(s): F10.20 - Alcohol dependence, uncomplicated Category: Medical Plan - Continue current citalopram and atorvastatin dosages, both demonstrating effective management of depression and hypercholesterolemia, respectively. - Schedule regular nurse visit for tetanus vaccination update. - Encourage reduction in alcohol intake, align with advised limits discussed during the visit. - Support lifestyle modification addressing prediabetes, emphasizing reduced sweet intake. Patient was informed and verbally consented to the use of an ambient scribe for clinic note documentation during this visit. I discussed the stable management of the patient's hypercholesterolemia with atorvastatin 40 mg and advised against any changes due to effective control. We reviewed the recent blood glucose findings pointing to prediabetes and reinforced lifestyle strategies, particularly limiting sweets and alcohol, to mitigate risk progression. The risks of continuous daily alcohol consumption were highlighted with guidance to decrease frequency and quantity. Consent was sought and obtained to continue the current medication regimen with an understanding of the need for regular monitoring. The necessity of updating the tetanus vaccine was also discussed, with arrangements to schedule the administration at a future clinic visit. Follow-up on alcohol reduction efforts and ear wax management were also covered. Orders: Orders Influenza [id number] Immunization Today Z23 - Encounter for immunization Medications: Refilled atorvastatin 40 mg PO BEDTIME 90 days 90 tabs 1RF E78.5 - Hyperlipidemia, unspecified citalopram 10 mg PO DAILY 90 days 90 tabs 1RF Patient Instructions: - Continue current medications: Citalopram 10 mg daily, Atorvastatin 40 mg daily. - Schedule a nurse visit for tetanus booster as it is overdue. - Limit alcohol intake as advised. - Attempt lifestyle changes to manage prediabetes, especially reducing sweets. - Follow up with an eye doctor as needed for routine care. - Use a minimal amount of hydrogen peroxide for ear wax management at home.
== END 2024-01-26 14:53 | disposition home or self-care (01) ==
PROVIDERS: PCP Internal Medicine; Visit Provider Internal Medicine
DX: Z00.00 Encounter for general adult medical examination without abnormal findings (principal); F10.20 Alcohol dependence, uncomplicated; Z23 Encounter for immunization

== ENCOUNTER → 2024-01-26 14:25 | Outpatient (BNVA) | payer OTHER, SELFPAY | PROVIDERS: PCP Internal Medicine; Visit Provider Internal Medicine | DX: Z00.00 Encounter for general adult medical examination without abnormal findings (principal); F32.A Depression, unspecified; F41.9 Anxiety disorder, unspecified; F10.20 Alcohol dependence, uncomplicated; E78.00 Pure hypercholesterolemia, unspecified; Z23 Encounter for immunization; Z79.899 Other long term (current) drug therapy | CPT/HCPCS: 90471; 90656; 96127; 99396 ==

== ENCOUNTER 2024-05-30 06:18 | Outpatient (REF) | payer OTHER, SELFPAY ==
[2024-05-30 07:55] LABS: Alanine Aminotransferase 28 U/L (0-40); Alkaline Phosphatase 73 U/L (39-117); Anion Gap 10 (12-20); Aspartate Amino Transferase 30 U/L (5-37); Bilirubin Total 0.4 mg/dL (0.0-1.0); Blood Urea Nitrogen 19 mg/dL (9-16); Calcium 8.9 mg/dL (8.4-10.2); Carbon Dioxide 25 mmol/L (22-29); Chloride 108 mmol/L (96-108); Cholesterol 177 mg/dL (<200); Estimated Glomerular Filt Rate > 60; Glucose Fasting 113 mg/dL (60-99); HDL Cholesterol 50 mg/dL (>40); LDL Cholesterol Calculated 109 mg/dL (<100); Sodium 139 mmol/L (135-145); Total Protein 7.1 g/dL (6.5-8.0); Triglycerides 91 mg/dL (<150)
== END 2024-05-30 06:19 | disposition home or self-care (01) ==
LOC: HO.LAB 06:18
PROVIDERS: PCP Internal Medicine; Visit Provider Internal Medicine
DX: R73.02 Impaired glucose tolerance (oral) (principal); E78.5 Hyperlipidemia, unspecified
CPT/HCPCS: 36415; 80053; 80061

== ENCOUNTER 2024-05-31 15:24 | Outpatient (AMB) | payer OTHER, SELFPAY ==
--- NOTE | 2024-05-31 15:27 | A.OFFPC_ITS ---
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 Accompanied by: Self / Same As Patient Allergies No Known Allergies Allergy (Verified 05/31/24 15:47) Medication List - Last Reconciled 05/31/24 by Yvonne Moe MD atorvastatin 40 mg PO BEDTIME 90 days citalopram 10 mg PO DAILY 90 days fluticasone propionate 50 mcg/actuation (Flonase Allergy Relief) 1 spray intranasal DAILY 30 days Tobacco use date assessed: 05/31/24 Dental Screening Dental Screen Date: 05/31/24 Did you have a dental visit in the last 12 months?: No Did you have a dental problem in the last 6 months where you did not have access to dental care?: No Was dental information given to patient?: Yes HPI HPI Comments History of Present Illness Details The patient is a 59-year-old male presenting for follow-up regarding management of essential hypertension, alcoholism, hyperlipidemia, depression with anxiety, and improved glycemic control associated with prediabetes. Recent laboratory results indicate improved blood glucose levels, declining from 120 mg/dL to 113 mg/dL. Cholesterol levels are well-managed with atorvastatin therapy, showing a total cholesterol of 177 mg/dL. The patient engages in regular physical activity through stair climbing at work and reports improved cardiovascular health. He consumes alcohol within moderate limits, reporting one to two beers daily and occasional tequila intake while noting significant reduction from previous levels. The patient is compliant with citalopram for depression and anxiety without side effects. He is aware of dietary habits, particularly with sweet consumption, and acknowledges the need for regulation. [facility] Medical History Essential hypertension Alcohol abuse Glucose intolerance (impaired glucose tolerance) Dyslipidemia Overweight Headache Surgical History Hx of colonoscopy History of hernia surgery Family History Father Diabetes Hypertension Social History Housing: Apartment Alcohol intake: current Alcohol intake frequency: 0-2 drinks per day Alcohol type: beer, wine and hard liquor Patient Tobacco Use Status: Never used Tobacco e-Cigarette/Vaping Use: Never Used Second Hand Smoke Exposure: No service: No Current occupational status: employed Current occupational exposures/hazards: No Cognitive needs: No Hearing needs: No Vision needs: No Questionnaire PHQ-9 Over the last 2 weeks, how often have you been bothered by any of the following problems? 1. Little interest or pleasure in doing things: not at all 2. Feeling down, depressed, or hopeless: not at all 3. Trouble falling or staying asleep, or sleeping too much: not at all 4. Feeling tired or having little energy: not at all 5. Poor appetite or overeating: not at all 6. Feeling bad about yourself - or that you are a failure or have let yourself or your family down: not at all 7. Trouble concentrating on things, such as reading the newspaper or watching television: not at all 8. Moving or speaking so slowly that other people could have noticed. Or the opposite - being so fidgety or restless that you have been moving around a lot more than usual: not at all 9. Thoughts that you would be better off or of hurting yourself in some way: not at all Total score: 0 Depression Screening Interpretation: Negative Depression Screening Done: Yes 71531 - PHQ-9 Billing: Yes Source: Developed by Drs. Daniel Steiner, Cora Metcalf, Yuniel Darby and colleagues, with an educational aelks from [employer]. Thrive Questionnaire Date Thrive assessed: 05/31/24 I am a: Patient What is your living situation today?: I have a steady place to live Within the past 12 months, did the food you bought not last and you didn't have the money to get more?: Never true Within the past 12 months, did you worry whether your food would run out before you got money to buy more?: Never true Do you have trouble paying for medicines?: I choose not to answer this question Do you have trouble getting transportation to medical appointments?: I choose not to answer this question Do you have trouble paying your heating and electricity bill?: I choose not to answer this question Do you have trouble taking care of your child, family member or friend?: I choose not to answer this question Do you have trouble with day-to-day activities such as bathing, preparing meals, shopping, managing finances, etc.?: I choose not to answer this question Are you currently unemployed and looking for a job?: I choose not to answer this question Are you interested in more education?: I choose not to answer this question Please select the resources that you would like help with: None Currently or been in a relationship where the following occur: I choose not to answer THRIVE Score: 0 AUDIT C Alcohol Use Questionnaire (AUDIT-C) 1. How often do you have a drink containing alcohol?: 4 or more times a week 2. How many drinks containing alcohol do you have on a typical day when you are drinking?: 1 or 2 3. How often do you have six or more drinks on one occasion?: Never Total Score: 4 ADRYAN-7 AMB Questionnaire ADRYAN-7 Date ADRYAN - 7 assessed: 05/31/24 Feeling nervous, anxious, or on edge: 0 = Not at all Not being able to stop or control worryin = Not at all Worrying too much about different things: 0 = Not at all Trouble relaxin = Not at all Being so restless that it is hard to sit still: 0 = Not at all Becoming easily annoyed or irritable: 0 = Not at all Feeling afraid as if something awful might happen: 0 = Not at all Total ADRYAN-7 score (0-4 normal; 5-9 mild; 10-14 moderate; 15-21 severe): 0 Source: Developed by Drs. Daniel Steiner, Cora Metcalf, Yuniel Darby and colleagues, with an educational aleks from [employer]. ADRYAN-7 Assessment Billing ADRYAN-7 Assessment Tool: ADRYAN-7 Assessment 12291 Review of Systems Const All systems reviewed & are unremarkable except as noted in HPI and below Card Denies chest pain at rest, Denies chest pain with activity, Denies edema, Denies irregular heart rhythm, Denies claudication, Denies dyspnea, Denies dyspnea on exertion, Denies orthopnea, Denies paroxysmal nocturnal dyspnea and Denies slow heart rate Resp Denies cough, Denies dyspnea and Denies dyspnea on exertion GI Denies abdominal pain, Denies change in bowel habits, Denies excessive flatus, Denies nausea and Denies vomiting Neuro Denies behavioral changes and Denies lack of coordination Psych Denies behavioral changes Physical exam (Primary Care) Vital Signs: Last Vital Signs BP 138/80 05/31/24 15:30 BMI result Body Mass Index 26.5 Tobacco/Smoking Status: Tobacco use Status Tobacco use date assessed 05/31/24 05/31/24 15:34 Patient Tobacco Use Status Never used Tobacco 05/31/24 15:30 e-Cigarette/Vaping Use Never Used 05/31/24 15:30 PHQ-9: PHQ-9 Score PHQ-9: Total score 0 05/31/24 15:51 Depression Screening Interpretation: Negative Thrive Assessment: Date of Thrive Assessment Date Thrive assessed 05/31/24 05/31/24 15:30 Currently or been in a relationship where the following occur: I choose not to answer Resp Effort & Inspection: normal respiratory effort Auscultation: clear to auscultation bilaterally Cardio Jugular venous distension: no JVD Rate: regular rate Rhythm: regular rhythm Heart sounds: S1 normal heart sound present and S2 normal heart sound present Extrem General: Yes full ROM Coding Level of Care Code Est Pt Level 4 (81059) Complex EM visit Add On G2211 Diagnoses Alcoholism F10.20 ADRYAN (generalized anxiety disorder) F41.1 Glucose intolerance (impaired glucose tolerance) R73.02 Dyslipidemia E78.5 Additional Codes ADRYAN-7 Assessment Billing - ADRYAN-7 Assessment Tool: ADRYAN-7 Assessment 68216 ([id number]) PHQ-9 - 81431 - PHQ-9 Billing: Yes ([id number]) Time Spent (min) 22 Assessment & Plan Assessment & Plan (1) Alcoholism: Code(s): F10.20 - Alcohol dependence, uncomplicated Category: Medical (2) ADRYAN (generalized anxiety disorder): Code(s): F41.1 - Generalized anxiety disorder Category: Medical (3) Glucose intolerance (impaired glucose tolerance): Code(s): R73.02 - Impaired glucose tolerance (oral) Category: Medical (4) Dyslipidemia: Code(s): E78.5 - Hyperlipidemia, unspecified Category: Medical Plan We reviewed and confirmed the ongoing management of hypertension, hyperlipidemia, depression with anxiety, and prediabetes. The patient is to continue with current medications, citalopram and atorvastatin, at prescribed dosages. Continued moderation in alcohol consumption and regular physical activity are advised. Future laboratory assessments will occur in February, coinciding with the next scheduled physical examination. Dietary vigilance, particularly surrounding sugar intake, is encouraged to sustain the observed improvements in blood glucose levels. Patient was informed and verbally consented to the use of an ambient scribe for clinic note documentation during this visit. I discussed with the patient the encouraging results of recent laboratory tests, indicating improved glycemic and lipid control. We emphasized the importance of maintaining current therapeutic measures, including pharmacological and lifestyle interventions, to sustain these improvements. Comprehensive discussion included risks and benefits of ongoing therapy and the importance of dietary moderation, specifically addressing alcohol and sugar intake. We outlined plans for follow-up laboratory assessments in line with his next physical examination in February. Orders: Orders Lipid Panel 9 Months E78.5 - Hyperlipidemia, unspecified Comprehensive Rainbow. Panel Fast 9 Months J30.9 - Allergic rhinitis, unspecified Patient Instructions: - Continue to take citalopram and atorvastatin as prescribed. - Keep regular exercise, such as climbing stairs at work. - Limit sugary foods, especially at night. - Restrict alcohol intake to one to two beers per day. - Return for a physical evaluation and lab work in February.
[2024-05-31 15:30] VITALS: BP 138/80; BMI 26.5
--- OUTSIDE RECORDS SUMMARY | 2024-05-31 18:07 | XMS_ITS | Clinical Summary ---
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 Name Role Phone Unavailable Primary Care Provider Unavailabl e Immunizations Name Administration Dates Next Due Moderna Covid-19 Vaccine 12+ 03/14/2021,07/10/19,06/11/2020 Moderna Covid-19 Vaccine 6+ Bivalent 02/17/2022 Social History Tobacco Use Types Packs/Day Years Used Date Smoking Tobacco: Never Assessed Sex and Gender Information Value Date Recorded Sex Assigned at Male 02/17/2022 10:36 AM EST Legal Sex Male 10:30 AM EST Gender Identity Male 02/17/2022 10:36 AM EST Sexual Orientation Straight 02/17/2022 3: 39 PM EST Plan of Treatment Health Maintenance Due Date Last Done Comments CT Colonography 1965 Colonoscopy 1965 Colorectal Cancer Screening 1965 Depression Screening 1965 FIT DNA/Cologuard 1965 FIT 1965 FOBT 1965 HIV Screening 1965 Lipid Panel 1965 SDOH Screening 1965 Sigmoidoscopy 1965 Alcohol/Substance Use Screening 1977 Tobacco Screening 1977 Hepatitis C Screening 1983 DTaP/Tdap/Td Vaccines (1 - Tdap) 01/18/1984 Hepatitis B Vaccines (1 of 3 - 19+ 3-dose series) 01/18/1984 Pneumococcal Vaccine: 50+ Years (1 of 1 - PCV) 2015 Zoster Vaccines (1 of 2) 2015 COVID-19 Vaccine ( season) 2023 02/17/2022, 03/14/2021, 07/09/2020, Additional history exists Influenza Vaccine (#1) 2023 RSV Patients and Patients Aged 60 years or older (1 - 1-dose 75+ series) 01/18/2040 HIB Vaccines Aged Out No longer eligi ble based on patient's age to complete this topic HPV Vaccines Aged Out No longer eligi ble based on patient's age to complete this topic Hepatitis A Vaccines Aged Out No long er eligible based on patient's age to complete this topic IPV Vaccines Aged Out No longer eligi ble based on patient's age to complete this topic Meningococcal Vaccine Aged Out No jerri winter eligible based on patient's age to complete this topic Pneumococcal Vaccine: Pediatrics (0 to 5 Years) and At-Risk Patients (6 to 49) Years) Aged Out No longer eligible based on patient's age to complete this topic RSV under 20 months Aged Out No longe r eligible based on patient's age to complete this topic Rotavirus Vaccines Aged Out No longer eligible based on patient's age to complete this topic [place] [address] [place] [address] ACO
== END 2024-05-31 15:55 | disposition home or self-care (01) ==
LOC: HO.HMCH 15:25
PROVIDERS: PCP Internal Medicine; Visit Provider Internal Medicine
DX: F10.20 Alcohol dependence, uncomplicated (principal); F41.1 Generalized anxiety disorder; R73.02 Impaired glucose tolerance (oral); E78.5 Hyperlipidemia, unspecified

== ENCOUNTER → 2024-05-31 15:24 | Outpatient (BNVA) | payer OTHER, SELFPAY | PROVIDERS: PCP Internal Medicine; Visit Provider Internal Medicine | DX: I10 Essential (primary) hypertension (principal); R73.02 Impaired glucose tolerance (oral); E78.5 Hyperlipidemia, unspecified; F10.20 Alcohol dependence, uncomplicated; F32.A Depression, unspecified; F41.9 Anxiety disorder, unspecified; Z79.899 Other long term (current) drug therapy | CPT/HCPCS: 96127; 99212 ==

== ENCOUNTER 2025-02-04 16:19 | Outpatient (AMB) | payer OTHER, SELFPAY ==
--- NOTE | 2025-02-04 16:23 | AM.OFFVISNUR ---
Intake Visit Reasons: Flu shot Allergies No Known Allergies Allergy (Verified 05/31/24 15:47) Office Procedures Flu Questionnaire Does the patient have a severe egg allergy?: No Does the patient have severe life threatening allergies?: No Does the patient have a fever or illness today?: No Has the patient ever had Guillain-Bantry Syndrome?: No Has the patient ever had any past reaction to a flu shot?: No Immunizations Fluarix [id number] (PF) 45 mcg (15 mcg x 3)/0.5 mL IM syringe Performing Provider: Yvonne Moe MD [facility] [place] Administered by: Naina Cyr RN on 02/04/25 16:23 Dose Route Admin Location Dispensed Lot Number Expiration Date [facility] Pediatric Registered Nurse 0.5 mL IM Left Deltoid 0.5 mL [id number] 08/06/25 [id number] [employer] VIS Given Date VIS Provided VIS Publication Date 02/04/25 Single Vaccine 24 Eligibility Eligibility Date Funding Source Not [facility] Eligible 02/04/25 Private Assessment & Plan Assessment & Plan Orders: Orders Influenza [id number] Immunization Today Z23 - Encounter for immunization Coding
== END 2025-02-04 16:30 | disposition home or self-care (01) ==
LOC: HO.HMCH 16:20
PROVIDERS: PCP Internal Medicine
DX: Z23 Encounter for immunization (principal)

== ENCOUNTER → 2025-02-04 16:19 | Outpatient (BNVA) | payer OTHER, SELFPAY | PROVIDERS: PCP Internal Medicine | DX: Z23 Encounter for immunization (principal) | CPT/HCPCS: 90471; 90656 ==